=== PATIENT | female | born 1935 ===

== ENCOUNTER 2016-11-06 20:02 | Inpatient (IN) | payer MEDICARE, MEDICAID ==
[2016-11-06 20:03] VITALS: BMI 24.0
--- NOTE | 2016-11-06 20:08 | C.PDOC ---
History Of Present Illness Patient with a history of Parkinson's Disease presents to the ED with complaints of chest pain and blurry vision beginning earlier today. Patient states she called her son earlier in the day with symptoms and while walking to the ED began to develop left sided chest pain. She denies fever, chills, nausea , or vomiting. Time Seen by Provider: 11/06/16 20:08 Chief Complaint (Nursing): Chest Pain History Per: Patient History/Exam Limitations: no limitations Onset/Duration Of Symptoms: Hrs Current Symptoms Are (Timing): Still Present Severity: Moderate Pain Scale Rating Of: 4 Quality: "Pain" Associated Symptoms: denies: Nausea, Dyspnea, Diaphoresis, Syncope Modifying Factors: None Exacerbating Factors: Other (Walking ) Alleviating Factors: None Recent travel outside of the [place]: No Additional History Per: Family (son ) Past Medical History Reviewed: Historical Data, Nursing Documentation, Vital Signs Vital Signs: Last Vital Signs Temp 97.2 F L 11/06/16 20:23 Pulse 98 H 11/06/16 20:23 Resp 20 11/06/16 20:23 BP 171/87 H 11/06/16 20:23 Pulse Ox 96 11/06/16 20:23 - Medical History PMH: HTN, Osteoporosis, Parkinson's Disease - [facility] Procedures EXCISION OF STOMACH, ENDO, DIAGN (04/19/16) TRANSFUSE NONAUT RED BLOOD CELLS IN PERIPH VEIN, PERC (04/19/16) Family History: States: No Known Family Hx - Social History Hx Tobacco Use: No Hx Alcohol Use: No Hx Substance Use: No - Immunization History Hx Tetanus Toxoid Vaccination: No Hx Influenza Vaccination: No Hx Pneumococcal Vaccination: Yes Review Of Systems Constitutional: Negative for: Fever, Chills Eyes: Positive for: Other (blurry vision ) Cardiovascular: Positive for: Chest Pain. Negative for: Palpitations Respiratory: Negative for: Cough, Shortness of Breath Gastrointestinal: Negative for: Nausea, Vomiting, Abdominal Pain Neurological: Negative for: Weakness, Numbness Physical Exam - Physical Exam Appears: Non-toxic, No Acute Distress Skin: Warm, Dry Head: Atraumatic Eye(s): bilateral: Normal Inspection, PERRL, EOMI Oral Mucosa: Moist Neck: Supple Chest: Symmetrical Cardiovascular: Rhythm Regular Respiratory: No Rales, No Rhonchi, No Wheezing Gastrointestinal/Abdominal: Bowel Sounds (good bowel sounds ), Soft, No Tenderness, No Distention, No Guarding, No Rebound Extremity: No Tenderness, Pedal Edema (bilateral trace pedal edema ) Neurological/Psych: Oriented x3, Other (Bilateral tremors. Cogwheel rigidity.) ED Course And Treatment - Laboratory Results Result Diagrams: 11/06/16 20:53 11/06/16 20:53 ECG: Interpreted By Me, Viewed By Me ECG Rhythm: Sinus Rhythm (104), ST/T Changes (lvh with repolarization abn) O2 Sat by Pulse Oximetry: 96 Pulse Ox Interpretation: Normal - Radiology CXR: Interpreted by Me, Viewed By Me - CT Scan/US Head CT W/O contrast Other Rad Studies (CT/US): Read By Radiologist, Radiology Report Reviewed Progress Note: UA, Head CT, EKG, CXR, and labs were ordered. Patient was given Ecotrin. Disposition Discussed With DrJulia: Charles Sanchez Comment: accepted the pt on his service and took over the care at 11:25PM Doctor Will See Patient In The: ED Counseled Patient/Family Regarding: Studies Performed, Diagnosis - Disposition Disposition: HOSPITALIZED Disposition Time: 20:08 Condition: FAIR Forms: [employer] (Yi) - Clinical Impression Clinical Impression: Chest pain, Renal insufficiency, Parkinson disease - Scribe Statement The provider has reviewed the documentation as recorded by the Scribe Martha Daniels All medical record entries made by the Scribe were at my direction and personally dictated by me. I have reviewed the chart and agree that the record accurately reflects my personal performance of the history, physical exam, medical decision making, and the department course for this patient. I have also personally directed, reviewed, and agree with the discharge instructions and disposition.
[2016-11-06 20:09] VITALS: O2SAT 96
[2016-11-06] MEDS ORDERED: Aspirin 325 mg EC Tablets PO STA (20:31)
[2016-11-06 21:03] LABS: BASO # 0.1 K/uL (0.0-0.2); BASO % 0.8 % (0.0-2.0); EOS # 0.1 K/uL (0.0-0.7); EOS % 1.5 % (0.0-4.0); HEMATOCRIT 32.4 % (34.0-47.0); LYMPH # 1.1 K/uL (1.0-4.3); LYMPH % 14.7 % (20.0-40.0); MEAN CELL VOLUME 84.5 fL (81.0-99.0); MEAN CORPUSCULAR HEMOGLOBIN 27.9 pg (27.0-31.0); MEAN PLATELET VOLUME 8.8 fL (7.2-11.7); MONO # 0.6 K/uL (0.0-0.8); MONO % 8.8 % (0.0-10.0); RED CELL DISTRIBUTION WIDTH 15.8 % (11.5-14.5); WHITE BLOOD COUNT 7.3 K/uL (4.8-10.8)
[2016-11-06 21:18] LABS: RBC URINE 2 /hpf (0-3); TRANSITIONAL EPITHIAL 1 /hpf (0-3); URINE BACTERIA FEW (<OCC); URINE BILIRUBIN NEGATIVE (NEGATIVE); URINE BLOOD NEGATIVE (NEGATIVE); URINE COLOR Yellow (YELLOW); URINE GLUCOSE (UA) NORMAL (Normal); URINE KETONE NEGATIVE (NEGATIVE); URINE LEUKOCYTE ESTERASE 2+ Leu/uL (Negative); URINE PROTEIN 1+ mg/dL (NEGATIVE); URINE UROBILINOGEN NORMAL mg/dL (0.2-1.0); WBC URINE 28 /hpf (0-5)
[2016-11-06 21:28] LABS: POTASSIUM 3.9 mmol/L (3.6-5.2)
[2016-11-06] MEDS ORDERED: Piperacillin/Tazobact 3.375 gm 100 ML IVPB STA (21:28)
[2016-11-06 21:30] LABS: ALB/GLOB RATIO 1.6 (1.0-2.1); BILIRUBIN,TOTAL 0.5 mg/dL (0.2-1.3); TOTAL PROTEIN 7.1 g/dL (6.3-8.3)
[2016-11-06 21:31] LABS: CALCIUM 9.2 mg/dl (8.6-10.4)
[2016-11-06 21:44] LABS: TROPONIN I 0.013 ng/mL (0.00-0.120)
[2016-11-06] MEDS ORDERED: Piperacillin/Tazobact 3.375 gm 100 ML IVPB ONE (23:18)
--- NOTE | 2016-11-06 23:39 | CT ---
EXAM: CT Head Without Intravenous Contrast EXAM DATE/TIME: 11/06/2016 8:40 PM CLINICAL HISTORY: 81 years old, female; Condition or disease; Headache; Additional info: Occaionally decreased vision, ? headache, parkinson TECHNIQUE: Axial computed tomography images of the head/brain without intravenous contrast. All CT scans at this facility use one or more dose reduction techniques, viz.: automated exposure control; ma/kV adjustment per patient size (including targeted exams where dose is matched to indication; i.e. head); or iterative reconstruction technique. COMPARISON: There are no prior studies for comparison. FINDINGS: Brain: There is dilatation of sulci gyri and ventricles. There is no midline shift. There is decreased attenuation in periventricular white matter. There are basal ganglia calcifications. There are no focal masses. There are no focal hemorrhages. Gerard-white differentiation is visualized. Vascular structures at the skull base are ectatic with calcification. Left cerebellar calcification is felt to be vascular and is unchanged. Ventricles: See above. Bones: Cranial vault is intact. Soft tissues: unremarkable Sinuses: There is no acute sinusitis. Ears and mastoids: Middle ears and mastoids are unremarkable. Orbits: Orbital contents are unremarkable. IMPRESSION: Atrophy and small vessel disease, no acute intracranial abnormality
[2016-11-07 00:43] VITALS: BP 191/92; PULSE 100; RESP 18; TEMP 98.5
--- NOTE | 2016-11-07 10:30 | RAD ---
PROCEDURE: CHEST RADIOGRAPH, 1 VIEW HISTORY: chest pain COMPARISON: Portable chest 04/19/2016. FINDINGS: LUNGS: Clear. PLEURA: The left costophrenic sulcus is obscured likely by small pleural effusion. No right pleural effusion. No pneumothorax bilaterally. CARDIOVASCULAR: Cardiac silhouette remains prominent appearing but no pulmonary vascular derangement is appreciated. OSSEOUS STRUCTURES: No significant abnormalities. VISUALIZED UPPER ABDOMEN: Normal. OTHER FINDINGS: None. IMPRESSION: Interval minimal left pleural effusion. None is seen the right. No infiltrate bilaterally.
--- NOTE | 2016-11-08 18:07 | CARD ---
APPROVED REPORT EKG Measurement Heart [id number] <Conclusion> Sinus tachycardia Left axis deviation Left ventricular hypertrophy with repolarization abnormality Abnormal ECG
== END 2016-11-07 00:46 | disposition left against medical advice (07) | DRG 313 ==
LOC: C.ER 20:02 → C.6T 23:35
PROVIDERS: ADMIT Internal Medicine; ATTEND Internal Medicine
DX: R07.9 Chest pain, unspecified (principal); G20 Parkinson's disease; N28.9 Disorder of kidney and ureter, unspecified; I10 Essential (primary) hypertension; M81.0 Age-related osteoporosis without current pathological fracture; H53.8 Other visual disturbances

== ENCOUNTER 2016-11-21 06:57 | Day surgery (SDC) | payer MEDICARE, MEDICAID ==
[2016-11-21 07:28] VITALS: BMI 26.1
[2016-11-21] MEDS ORDERED: Lactated Ringer's 1,000 ML IV ONE (09:20)
[2016-11-21] MEDS ORDERED: Propofol 10 mg/ml Inj (20 ML) ONE (09:32)
[2016-11-21] MEDS ORDERED: Lidocaine Hydrochloride 5 ML INJ ONE (09:32)
[2016-11-21 09:55] VITALS: TEMP 97.8
[2016-11-21 10:21] VITALS: O2SAT 97
[2016-11-21 11:08] VITALS: BP 155/77; PULSE 77; RESP 20
== END 2016-11-21 11:00 | disposition home or self-care (01) ==
LOC: C.ENDO 06:57
PROVIDERS: ATTEND Internal Medicine Gastroenterology
DX: K25.9 Gastric ulcer, unspecified as acute or chronic, without hemorrhage or perforation (principal)
CPT/HCPCS: 43239; 82948; 88305; J2704; J7120

== ENCOUNTER 2016-12-04 23:32 | Inpatient (IN) | payer MEDICARE, MEDICAID ==
[2016-12-04 23:32] VITALS: BMI 26.1
[2016-12-04] MEDS ORDERED: Sodium Chloride 0.9% 500 ML IV ONE (23:57)
[2016-12-05 00:17] LABS: BASO # 0.1 K/uL (0.0-0.2); BASO % 1.1 % (0.0-2.0); EOS # 0.2 K/uL (0.0-0.7); EOS % 1.6 % (0.0-4.0); LYMPH # 2.1 K/uL (1.0-4.3); LYMPH % 21.2 % (20.0-40.0); MEAN CELL VOLUME 87.1 fL (81.0-99.0); MEAN CORPUSCULAR HEMOGLOBIN 28.8 pg (27.0-31.0); MEAN CORPUSCULAR HGB CONC 33.1 g/dL (33.0-37.0); MEAN PLATELET VOLUME 9.4 fL (7.2-11.7); MONO # 0.9 K/uL (0.0-0.8); MONO % 8.8 % (0.0-10.0)
--- NOTE | 2016-12-05 00:27 | C.PDOC ---
History Of Present Illness 81 year old female with a history of HTN and hyperthyroid presents to the ED with complaints of acute onset of intermittent left sided chest pain with associated shortness of breath beginning a few hours prior to arrival at 7pm. Patient did not tell anyone about the pain until her son was home from work at 11pm. She has no known cardiac history. On arrival, was a 5/10 but has since resolved. She denies cough, production of sputum, fever, radiation of pain, nausea, or vomiting. Chief Complaint (Nursing): Chest Pain History Per: Patient (vague historian ), Family (son ) History/Exam Limitations: no limitations Onset/Duration Of Symptoms: Hrs, Intermittent Episodes, Sudden Onset Current Symptoms Are (Timing): Better Pain Scale Rating Of: 5 Quality: "Pain" Modifying Factors: None Exacerbating Factors: None Alleviating Factors: None Recent travel outside of the [place]: No Past Medical History Reviewed: Historical Data, Nursing Documentation, Vital Signs Vital Signs: Last Vital Signs Temp 98.4 F 12/04/16 23:42 Pulse 83 12/05/16 00:29 Resp 16 12/05/16 00:29 BP 136/83 12/05/16 00:29 Pulse Ox 95 12/05/16 01:14 - Medical History PMH: Anemia, Gastrointestinal Ulcer, HTN, Osteoporosis, Parkinson's Disease, Chronic Kidney Disease Surgical History: No Surg Hx, Endoscopy - [facility] Procedures EXCISION OF STOMACH, ENDO, DIAGN (04/19/16) TRANSFUSE NONAUT RED BLOOD CELLS IN PERIPH VEIN, PERC (04/19/16) Family History: States: Unknown Family Hx - Social History Hx Tobacco Use: No Hx Alcohol Use: No Hx Substance Use: No - Immunization History Hx Tetanus Toxoid Vaccination: No Hx Influenza Vaccination: No Hx Pneumococcal Vaccination: Yes Review Of Systems Constitutional: Negative for: Fever, Chills Cardiovascular: Positive for: Chest Pain. Negative for: Palpitations Respiratory: Positive for: Shortness of Breath. Negative for: Cough Gastrointestinal: Negative for: Nausea, Vomiting, Abdominal Pain, Diarrhea Neurological: Negative for: Weakness, Numbness Physical Exam - Physical Exam Appears: In Acute Distress (mild distress ), Other (elderly female with parkinsonian tremor to RUE) Skin: Warm, Dry Head: Atraumatic, Normacephalic Eye(s): bilateral: Normal Inspection, PERRL, EOMI Ear(s): Bilateral: Normal Oral Mucosa: Moist Throat: Normal, No Erythema, No Exudate, Other (Airway patient ) Neck: Supple Chest: Symmetrical, No Deformity Cardiovascular: Other (resting heart is tachycardic at 110 bpm, S1 and S2 within normal limits. No thrills ) Respiratory: Other (Diminished breath sounds bilaterally, diminished lung excusions on auscultation. ) Gastrointestinal/Abdominal: Soft, No Tenderness, Distention (with tympany with percussion ), No Guarding, No Rebound Back: Other (Marked kyphoscoliosis) Extremity: No Pedal Edema, No Swelling, Other (No clubbing or cyanosis of extremities ) Neurological/Psych: Oriented x3, Normal Cranial Nerves (cranial nerves 2-12 intact ), Other (patient following commands, no motor focal deficits. ) ED Course And Treatment - Laboratory Results Result Diagrams: 12/04/16 23:50 12/04/16 23:50 ECG: Interpreted By Me, Viewed By Me ECG Rhythm: Sinus Tachycardia Interpretation Of ECG: EKG shows sinus tach to 103,LVH with strain,no acute ST changes.No old EKGs for comparison Rate From EC O2 Sat by Pulse Oximetry: 95 (nasal cannula ) - Radiology CXR: Interpreted by Me, Viewed By Me CXR Interpretation: Yes: Cardiomegaly, Other (lung magallon appear grossly normal) Progress Note: EKG, CXR, and labs ordered. Patient given nitroglycerin and IV fluids. Pt placed on nasal cannula. Medical Decision Making Medical Decision Making: Impression: Acute coronary syndrome vs hypertensive urgency. Full workup for ACS was ordered. Pt will likely require admission. Pt CP resolved and BP came down after single SLNTG.Will admit to r/o ACS Disposition - Disposition Referrals: Tianna Oliveira MD [Primary Care Provider] - Disposition Time: 01:12 Condition: GUARDED Forms: [employer] (Pashto) - Clinical Impression Clinical Impression: Acute coronary insufficiency syndrome - Scribe Statement The provider has reviewed the documentation as recorded by the Scribe Martha Daniels All medical record entries made by the Scribe were at my direction and personally dictated by me. I have reviewed the chart and agree that the record accurately reflects my personal performance of the history, physical exam, medical decision making, and the department course for this patient. I have also personally directed, reviewed, and agree with the discharge instructions and disposition. Decision To Admit - Pt Status Changed To: Hospital Disposition Of: Inpatient - Admit Certification Admit to Inpatient:: After my assessment, the patient will require hospitalization for at least two midnights. This is because of the severity of symptoms shown, intensity of services needed, and/or the medical risk in this patient being treated as an outpatient. - InPatient: Physician Admission Certification: I certify that this patient requires 2 or more midnights of care for the following reason:: acute coronary syndrome - . Bed Request Type: Telemetry Admitting Physician: Ronaldo Boles Patient Diagnosis: Acute coronary insufficiency syndrome
[2016-12-05 00:33] LABS: ALB/GLOB RATIO 1.1 (1.0-2.1); BILIRUBIN,TOTAL 0.6 mg/dL (0.2-1.3); CALCIUM 9.6 mg/dl (8.6-10.4); TOTAL PROTEIN 8.3 g/dL (6.3-8.3)
--- NOTE | 2016-12-05 00:42 | C.PDOC ---
Chief Complaint (Nursing): Chest Pain Past Medical History Vital Signs: Last Vital Signs Temp 98.4 F 12/04/16 23:42 Pulse 116 H 12/04/16 23:56 Resp 24 12/04/16 23:56 BP 168/98 H 12/04/16 23:56 Pulse Ox 96 12/04/16 23:56 - Medical History PMH: Anemia, Gastrointestinal Ulcer, HTN, Osteoporosis, Parkinson's Disease, Chronic Kidney Disease Denies: Fractures Surgical History: Endoscopy - [facility] Procedures EXCISION OF STOMACH, ENDO, DIAGN (04/19/16) TRANSFUSE NONAUT RED BLOOD CELLS IN PERIPH VEIN, PERC (04/19/16) Family History: States: Unknown Family Hx - Social History Hx Tobacco Use: No Hx Alcohol Use: No Hx Substance Use: No - Immunization History Hx Tetanus Toxoid Vaccination: No Hx Influenza Vaccination: No Hx Pneumococcal Vaccination: Yes ED Course And Treatment O2 Sat by Pulse Oximetry: 96 Disposition - Disposition Referrals: Tianna Oliveira MD [Primary Care Provider] -
[2016-12-05 00:45] LABS: TROPONIN I 0.03 ng/mL (0.00-0.120)
[2016-12-05 00:49] LABS: POTASSIUM 5.4 mmol/L (3.6-5.2)
[2016-12-05] MEDS ORDERED: Pantoprazole 40 mg EC Tab PO STA (01:24)
[2016-12-05] MEDS ORDERED: Pantoprazole 40 mg EC Tab PO ONE (01:28)
[2016-12-05] MEDS ORDERED: Labetalol 25mg/5ml Syringe IVP STA (04:44)
[2016-12-05] MEDS: (Novolog) Insulin Aspart, Recombinant 100 u/ml 10 ml vial SC SCH ×4 (07:40→22:06)
--- NOTE | 2016-12-05 08:21 | RAD ---
PROCEDURE: CHEST RADIOGRAPH, 1 VIEW HISTORY: chest pain COMPARISON: Portal chest 11/06/2016. FINDINGS: LUNGS: Borderline patchy airspace disease is questioned at the medial right base as well as lateral left base in the interval. PLEURA: Trace left pleural effusion remains in question with none on the right. No pneumothorax bilaterally. CARDIOVASCULAR: Prominent cardiac silhouette again noted. No pulmonary vascular derangement. OSSEOUS STRUCTURES: No significant abnormalities. VISUALIZED UPPER ABDOMEN: Normal. OTHER FINDINGS: None. IMPRESSION: Limited medial right basilar and left lateral basilar airspace disease is questioned in the interval with trace of pleural effusion again questioned. Cardiac silhouette appears stable.
[2016-12-05] MEDS: Pantoprazole 40 mg EC Tab PO SCH (09:22)
[2016-12-05] MEDS ORDERED: VALSARTAN 80 MG PO SCH (10:00)
[2016-12-05] MEDS ORDERED: Enoxaparin 40 mg Syringe SC SCH (10:00)
[2016-12-05] MEDS ORDERED: PRAMIPEXOLE DI HCL 0.5 MG PO SCH (10:00)
--- NOTE | 2016-12-05 18:34 | CT ---
PROCEDURE: CT HEAD WITHOUT CONTRAST. HISTORY: s/p fall COMPARISON: Comparison is made to the previous study dated 11/06/2016 TECHNIQUE: Axial computed tomography images were obtained through the head/brain without intravenous contrast. Radiation dose: Total exam DLP = 751.65 mGy-cm. This CT exam was performed using one or more of the following dose reduction techniques: Automated exposure control, adjustment of the mA and/or kV according to patient size, and/or use of iterative reconstruction technique. FINDINGS: HEMORRHAGE: No intracranial hemorrhage. BRAIN: No mass effect or edema. Again seen is [id number] atrophy and moderate chronic microvascular white matter ischemic disease. VENTRICLES: Unremarkable. No hydrocephalus. CALVARIUM: Unremarkable. PARANASAL SINUSES: Unremarkable as visualized. No significant inflammatory changes. MASTOID AIR CELLS: Unremarkable as visualized. No inflammatory changes. OTHER FINDINGS: Diffuse atherosclerotic calcifications seen in the carotid arteries at the skull base. IMPRESSION: No evidence of acute intracranial hemorrhage intracranial collection mass effect or midline shift.
--- NOTE | 2016-12-05 22:19 | CON ---
REASON FOR CONSULTATION: Fall and chest discomfort. HISTORY OF PRESENT ILLNESS: The patient is an 81-year-old female who has Parkinsonism for the past 10 years according to her, but she is able to function reasonably at home. She lives with her son. The patient presented because of a fall. The patient denies experiencing any dizziness or palpitation. The patient fell on her face and bruised her forehead. The patient did have falls in the past, but denies any fractures or significant injury in the past. The patient was brought by her son into the emergency room. Chest pain was reported to the emergency room team which was described to be intermittent, left-sided, associated with shortness of breath. The patient is unaware of any prior cardiac history in the past. SOCIAL HISTORY: Nonsmoker, nondrinker. She lives with her son. MEDICATIONS: Artane 2 mg p.o. t.i.d., Cozaar 100 mg daily, Crestor 10 mg once a day, Feosol 1 tablet twice a day, Glucophage 500 mg daily, hydrochlorothiazide 25 mg daily, Lovenox 40 mg subcutaneous once a day, Mirapex 0.5 mg t.i.d., Sinemet 1 tablet t.i.d. REVIEW OF SYSTEMS: No nausea or vomiting. No fever or chills. No diarrhea. No chest pain at this time. No palpitations. PHYSICAL EXAMINATION GENERAL: The patient is an elderly female, who does not appear to be in any distress. VITAL SIGNS: Blood pressure 146/91, heart rate 90, temperature 98. 1 and respirations 20. HEENT: Frontal bruising as well as nasal bruising. NECK: No JVD. CHEST: Clear. HEART: S1 and S2 regular. ABDOMEN: Soft. EXTREMITIES: Trace leg edema. LABORATORY DATA: SMA-7; sodium 135, potassium 5.4, chloride 99, CO2 of 22, glucose 133, BUN 34, creatinine 1.6. Three sets of troponin are elevated. Hemoglobin, hematocrit, white count and platelet count are within normal limits. EKG: Three EKGs are noted on the [employer] database; however, they are not accessible at this time and I would review the paper for math once it is available. Chest x-ray limited right basal and left lateral basal airspace disease is questioned and the interval with trace of pleural effusion, again questioned. ASSESSMENT: 1. Status post fall, unlikely syncopal episode and most likely related to the patient's parkinsonism. 2. Atypical chest pain. If chest pain recurs, then I will consider rib series. 3. Parkinsonism. 4. Hypertension. 5. Diabetes mellitus. 6. Mild hyperkalemia. RECOMMENDATIONS: Continue Cozaar 100 mg once a day, Crestor 10 mg once a day, hydrochlorothiazide 25 mg once a day, Lovenox 40 mg subcutaneous once a day, Sinemet 1 tablet t.i.d. I will follow head CT scan that was performed today as well as echocardiogram study and the 3 EKGs that were completed so far. Consider in the mean time carotid Doppler. Wm Aldridge MD
--- NOTE | 2016-12-05 22:58 | CP.PCM.HP ---
History of Present Illness - History of Present Illness History of Present Illness: CC: fall x 1 day Chest pain x 1 day HPI: 81 year old female with a history of HTN , parkinson dieases, hyperlipdemia and hyperthyroid presents to the ED with complaints of acute onset of intermittent left sided chest pain with associated shortness of breath beginning a few hours prior to arrival at 7pm. Patient did not tell anyone about the pain until her son was home from work at 11pm. She has no known cardiac history. On arrival, was a 5/10 but has since resolved. Pt is a poor historian she said she hit her head and chest and later on develop chest pain, but she cannot give exact secnario and information that what happened and how mario she fell. She denies cough, production of sputum, fever, radiation of pain , nausea, or vomiting. She c/o some headache and chornic knee pain. There is no h/o abdominal pain, dyspesia, hematuria, pyuria, nausea, vomitting, polyphagia, polydispsia, no sneezing, itchy eyes, itchy nose Present on Admission - Present on Admission Any Indicators Present on Admission: Yes Review of Systems - Review of Systems Systems not reviewed;Unavailable: Acuity of Condition, Uncooperative - Constitutional Constitutional: Fatigue, Lethargy, Malaise - EENT Eyes: Decreased Night Vision Ears: absent: As Per HPI, Decreased Hearing, Ear Discharge, Ear Pain, Tinnitus, Abnormal Hearing, Disequilibrium, Dizziness, Other Nose/Mouth/Throat: absent: As Per HPI, Epistaxis, Nasal Congestion, Nasal Discharge, Nasal Obstruction, Nasal Trauma, Nose Pain, Post Nasal Drip, Sinus Pain, Sinus Pressure, Bleeding Gums, Change in Voice, Dental Pain, Dry Mouth, Dysphagia, Halitosis, Hoarsness, Lip Swelling, Mouth Lesions, Mouth Pain, Odynophagia, Sore Throat, Throat Swelling, Tongue Swelling, Facial Pain, Neck Pain, Neck Mass, Other - Cardiovascular Cardiovascular: Chest Pain, Chest Pain at Rest. absent: As Per HPI, Acrocyanosis, Chest Pain with Activity, Claudication, Diaphoresis, Dyspnea, Dyspnea on Exertion, Edema, Irregular Heart Rhythm, Pain Radiating to Arm/Neck/ Jaw, Leg Edema, Leg Ulcers, Lightheadedness, Orthopnea, Palpitations, Paroxysmal Nocturnal Dyspnea, Pedal Edema, Radiating Pain, Rapid Heart Rate, Slow Heart Rate, Syncope, Other - Respiratory Respiratory: absent: As Per HPI, Cough, Dyspnea, Hemoptysis, Dyspnea on Exertion , Wheezing, Snoring, Stridor, Pain on Inspiration, Chest Congestion, Excessive Mucous Production, Change in Mucous Color, Pain with Coughing, Other - Gastrointestinal Gastrointestinal: absent: As Per HPI, Abdominal Pain, Belching, Bloating, Change in Bowel Habits, Change in Stool Character, Coffee Ground Emesis, Constipation, Cramping, Diarrhea, Dyspepsia, Dysphagia, Early Satiety, Excessive Flatus, Fecal Incontinence, Heartburn, Hematemesis, Hematochezia, Loose Stools, Melena, Nausea, Odynophagia, Temesmus, Vomiting, Other - Genitourinary Genitourinary: absent: As Per HPI, Change in Urinary Stream, Difficulty Urinating, Dysuria, Flank Pain, Hematuria, Pyuria, Nocturia, Urinary Incontinence, Urinary Frequency, Urinary Hesitance, Urinary Urgency, Voiding Freq/Small Amts, Freq UTI, Hx Renal/Bladder Calculi, Hx /Renal Surgery, Bladder Distension, Other - Musculoskeletal Musculoskeletal: Limited Range of Motion, Muscle Weakness, Myalgias, Stiffness, Tingling - Integumentary Integumentary: absent: As Per HPI, Acne, Alopecia, Bleeding Lesions, Change in Hair, Change in Nails, Change in Pigmentation, Changing Lesions, Dry Skin, Erythema, Furuncle, Hirsutism, Lesions, New Lesions, Non-Healing Lesions, Photosensitivity, Pruritus, Rash, Skin Pain, Skin Ulcer, Sores, Striae, Swelling , Unusual Bruising, Wounds, Jaundice, Other - Neurological Neurological: Headaches - Psychiatric Psychiatric: absent: As Per HPI, Abnormal Sleep Pattern, Anhedonia, Anxiety, Auditory Hallucinations, Behavioral Changes, Change in Appetite, Change in Libido, Confusion, Depression, Difficulty Concentrating, Hallucinations, Homicidal Ideation, Hopelessness, Irritability, Memory Loss, Mood Swings, Panic Attacks, Paranoia, Suicidal Ideation, Visual Hallucinations, Tactile Hallucinations, Other - Endocrine Endocrine: absent: As Per HPI, Change in Body Appearance, Change in Libido, Cold Intolorance, Deepening of Voice, Excessive Sweating, Fatigue, Flushing, Heat Intolorance, Increase in Ring/Shoe/Hat Size, Palpitations, Polydipsia, Polyphagia, Polyuria, Other Past Patient History - Infectious Disease Hx of Infectious Diseases: None - Past Medical History & Family History Past Medical History?: Yes - Past Social History Smoking Status: Never Smoked - CARDIAC Hx Cardiac Disorders: Yes Hx Hypertension: Yes - PULMONARY Hx Respiratory Disorders: No - NEUROLOGICAL Hx Neurological Disorder: Yes Hx Parkinson's Disease: Yes - HEENT Hx HEENT Problems: Yes Other/Comment: DIABETIC RETINOPATHY - RENAL Hx Chronic Kidney Disease: Yes - ENDOCRINE/METABOLIC Hx Endocrine Disorders: Yes Hx Diabetes Mellitus Type 2: Yes - HEMATOLOGICAL/ONCOLOGICAL Hx Blood Disorders: Yes Hx Anemia: Yes - INTEGUMENTARY Hx Dermatological Problems: No - MUSCULOSKELETAL/RHEUMATOLOGICAL Hx Musculoskeletal Disorders: Yes Hx Falls: Yes Hx Osteoporosis: Yes Other/Comment: restless leg syndrome - GASTROINTESTINAL Hx Gastrointestinal Disorders: Yes Hx Ulcer: Yes - GENITOURINARY/GYNECOLOGICAL Hx Genitourinary Disorders: Yes Hx Urinary Tract Infection: Yes Other/Comment: has appointment to see biomedical equipment specialist'for pain to left side of back kidney' - PSYCHIATRIC Hx Psychophysiologic Disorder: No Hx Substance Use: No - SURGICAL HISTORY Hx Surgeries: Yes Hx Dilation and Curettage: Yes (1988) Hx Thyroidectomy: Yes Other/Comment: 11/21/16 sp endoscopy 'bleeding ulcer' - ANESTHESIA Hx Anesthesia: Yes Hx Anesthesia Reactions: No Meds Allergies/Adverse Reactions: Allergies Allergy/AdvReac Type Severity Reaction Status Date / Time No Known Allergies Allergy Verified 12/04/16 23:39 Physical Exam - Constitutional Appears: Well, No Acute Distress Additional comments: elderly female in NAD prefers to keep her eyes close she has tremor in her hands - Eye Exam Eye Exam: EOMI, Normal appearance, PERRL Additional comments: i dont see any obvious bruises on head or forehead - ENT Exam Additional comments: oral cavity adentelous - Neck Exam Neck exam: Positive for: Normal Inspection - Respiratory Exam Respiratory Exam: Clear to Auscultation Bilateral, NORMAL BREATHING PATTERN - Cardiovascular Exam Cardiovascular Exam: REGULAR RHYTHM, Systolic Murmur Additional comments: 2/6 ESM at apex - GI/Abdominal Exam GI & Abdominal Exam: Normal Bowel Sounds, Soft. absent: Tenderness - Back Exam Back exam: NORMAL INSPECTION - Neurological Exam Neurological exam: Alert, CN II-XII Intact, Normal Gait, Oriented x3, Reflexes Normal Additional comments: cog wheel rigidity' resting tremor bradykinesia - Psychiatric Exam Additional comments: Pt is not cooperative with Physical exam - Skin Skin Exam: Dry, Intact, Normal Color, Warm Additional comments: senile turgor Results - Vital Signs Recent Vital Signs: Last Vital Signs Temp 98.1 F 12/05/16 15:05 Pulse 90 12/05/16 15:05 Resp 20 12/05/16 15:05 BP 146/91 H 12/05/16 15:05 Pulse Ox 96 12/05/16 15:05 - Labs Result Diagrams: 12/04/16 23:50 12/04/16 23:50 Labs: Laboratory Results - last 24 hr 12/04/16 12/04/16 12/05/16 23:50 23:50 05:57 WBC 10.0 RBC 3.90 Hgb 11.2 Hct 34.0 MCV 87.1 D MCH 28.8 MCHC 33.1 RDW 15.0 H Plt Count 242 MPV 9.4 Neut % (Auto) 67.3 Lymph % (Auto) 21.2 [place] % (Auto) 8.8 Eos % (Auto) 1.6 Baso % (Auto) 1.1 Neut # 6.7 Lymph # 2.1 [place] # 0.9 H Eos # 0.2 Baso # 0.1 Sodium 135 Potassium 5.4 H Chloride 99 Carbon Dioxide 22 Anion Gap 19 BUN 34 H Creatinine 1.6 H Est GFR ( Amer) 37 Est GFR (Non-Af Amer) 31 POC Glucose (mg/dL) Random Glucose 133 H Calcium 9.6 Total Bilirubin 0.6 AST 29 ALT 19 Alkaline Phosphatase 64 Total Creatine Kinase 67 CK-MB (Mass) 2.52 Troponin I 0.0300 Troponin I, Quant 0.0490 NT-Pro-B Natriuret Pep 404 Total Protein 8.3 Albumin 4.3 Globulin 4.0 H Albumin/Globulin Ratio 1.1 12/05/16 12/05/16 12/05/16 06:27 11:38 12:00 WBC RBC Hgb Hct MCV MCH MCHC RDW Plt Count MPV Neut % (Auto) Lymph % (Auto) [place] % (Auto) Eos % (Auto) Baso % (Auto) Neut # Lymph # [place] # Eos # Baso # Sodium Potassium Chloride Carbon Dioxide Anion Gap BUN Creatinine Est GFR ( Amer) Est GFR (Non-Af Amer) POC Glucose (mg/dL) 133 H 131 H Random Glucose Calcium Total Bilirubin AST ALT Alkaline Phosphatase Total Creatine Kinase 139 H CK-MB (Mass) 2.88 Troponin I Troponin I, Quant 0.0360 NT-Pro-B Natriuret Pep Total Protein Albumin Globulin Albumin/Globulin Ratio 12/05/16 12/05/16 17:14 21:14 WBC RBC Hgb Hct MCV MCH MCHC RDW Plt Count MPV Neut % (Auto) Lymph % (Auto) [place] % (Auto) Eos % (Auto) Baso % (Auto) Neut # Lymph # [place] # Eos # Baso # Sodium Potassium Chloride Carbon Dioxide Anion Gap BUN Creatinine Est GFR ( Amer) Est GFR (Non-Af Amer) POC Glucose (mg/dL) 167 H 146 H Random Glucose Calcium Total Bilirubin AST ALT Alkaline Phosphatase Total Creatine Kinase CK-MB (Mass) Troponin I Troponin I, Quant NT-Pro-B Natriuret Pep Total Protein Albumin Globulin Albumin/Globulin Ratio Assessment & Plan (1) Fall Assessment and Plan: could be mechanical fall or due to vasovagal episode Status: Acute (2) Chest pain Assessment and Plan: Rule out Coronary Ischemia, CAD Status: Acute (3) HTN (hypertension) Status: Acute (4) Osteoarthritis (arthritis due to wear and tear of joints) Status: Acute (5) Parkinson disease Status: Acute
--- NOTE | 2016-12-06 00:14 | CARD ---
APPROVED REPORT EXAM: Two-dimensional and M-mode echocardiogram with Doppler and color Doppler. Other Information Quality : GoodRhythm : INDICATION Abnormal EKG/Arrhythmia Chest Pain Syncope 2D DIMENSIONS IVSd1.4 (0.7-1.1cm)LVDd4.1 (3.9-5.9cm) PWd1.4 (0.7-1.1cm) M-Mode DIMENSIONS Left Atrium (MM)3.94 (2.5-4.0cm)Aortic Root3.05 (2.2-3.7cm) Aortic Cusp Exc.2.31 (1.5-2.0cm) Mitral Valve MV E Yjxsvnxg47.5cm/sMV A Dswnsnfq395.2cm/sE/A ratio0.5 TDI E/Lateral E'0.0E/Medial E'0.0 Tricuspid Valve TR Peak Engucbwx088gm/sTR Peak [id number] LEFT VENTRICLE The left ventricle is normal size. There is mild to moderate concentric left ventricular hypertrophy. Left ventricle systolic function is normal. The Ejection Fraction is 65-70%. There is normal LV segmental wall motion. Tissue Doppler imaging reveals abnormal left ventricular diastolic dysfunction. RIGHT VENTRICLE The right ventricle is normal size. There is normal right ventricular wall thickness. The right ventricular systolic function is normal. ATRIA The left atrium size is normal. The right atrium size is normal. The interatrial septum is intact with no evidence for an atrial septal defect. AORTIC VALVE The aortic valve is normal in structure. No aortic regurgitation is present. There is no aortic valvular stenosis. There is no aortic valvular vegetation. MITRAL VALVE The mitral valve is normal in structure. There is no evidence of mitral valve prolapse. There is no mitral valve stenosis. There is no mitral valve regurgitation noted. TRICUSPID VALVE The tricuspid valve is normal in structure. There is trace to mild tricuspid regurgitation. Right ventricular systolic pressure is estimated at less than 30 mmHg. There is no pulmonary hypertension. PULMONIC VALVE The pulmonic valve is not well visualized. There is trace to mild pulmonic valvular regurgitation. GREAT VESSELS The aortic root is normal in size. PERICARDIAL EFFUSION There is no significant pericardial effusion. <Conclusion> Left ventricle systolic function is normal. The Ejection Fraction is 65-70%. Hypertensive heart disease. Diastolic dysfunction. No aortic regurgitation is present. There is no mitral valve regurgitation noted. There is trace to mild tricuspid regurgitation. There is no pulmonary hypertension. There is trace to mild pulmonic valvular regurgitation.
--- NOTE | 2016-12-06 06:55 | CP.PCM.PN ---
Subjective - Date & Time of Evaluation Date of Evaluation: 12/06/16 Time of Evaluation: 21:45 - Subjective Subjective: pt seen and examined, chest pain resolved, Patient son refused the idea of rehab Objective - Vital Signs/Intake and Output Vital Signs (last 24 hours): Temp Pulse Resp BP Pulse Ox 98.2 F 74 20 163/76 H 97 12/05/16 23:20 12/06/16 04:18 12/05/16 23:20 12/05/16 23:20 12/05/16 23:20 - Medications Medications: Current Medications Carbidopa/Levodopa (Sinemet) 1 tab PO TID [facility] Last Admin: 12/05/16 18:22 Dose: 1 tab Enoxaparin Sodium (Lovenox) 40 mg SC DAILY [facility] Last Admin: 12/05/16 09:20 Dose: 40 mg Ferrous Sulfate (Feosol) 325 mg PO BID [facility] Last Admin: 12/05/16 18:21 Dose: 325 mg Hydrochlorothiazide (Hydrodiuril) 25 mg PO DAILY [facility] Last Admin: 12/05/16 09:26 Dose: 25 mg Insulin Aspart (Novolog) 1 unit SC [facility] PRN Reason: Protocol Last Admin: 12/05/16 22:06 Dose: Not Given Losartan Potassium (Cozaar) 100 mg PO DAILY [facility] Metformin HCl (Glucophage) 500 mg PO DAILY [facility] Last Admin: 12/05/16 09:21 Dose: 500 mg Nitroglycerin (Nitrostat Sl Tab) 0.4 mg SL Q5M PRN PRN Reason: Pain, moderate (4-7) Pantoprazole Sodium (Protonix Ec Tab) 40 mg PO DAILY [facility] Last Admin: 12/05/16 09:22 Dose: 40 mg Pneumococcal Polyvalent Vaccine (Pneumovax 23 Vaccine) 0.5 ml IM .ONCE ONE Stop: 12/07/16 10:01 Pramipexole Dihydrochloride (Mirapex) 0.5 mg PO TID [facility] Last Admin: 12/05/16 18:27 Dose: 0.5 mg Rosuvastatin Calcium (Crestor) 10 mg PO HS [facility] Last Admin: 12/05/16 22:04 Dose: 10 mg Trihexyphenidyl HCl (Artane) 2 mg PO TID [facility] Last Admin: 12/05/16 18:27 Dose: 2 mg - Labs Labs: 12/04/16 23:50 12/04/16 23:50 - Constitutional Appears: No Acute Distress, Chronically Ill - Head Exam Head Exam: ATRAUMATIC, NORMAL INSPECTION, NORMOCEPHALIC - Eye Exam Eye Exam: EOMI, Normal appearance, PERRL Pupil Exam: NORMAL ACCOMODATION, PERRL - Respiratory Exam Respiratory Exam: Clear to Ausculation Bilateral, NORMAL BREATHING PATTERN - Cardiovascular Exam Cardiovascular Exam: REGULAR RHYTHM, +S1, +S2. absent: Murmur - GI/Abdominal Exam GI & Abdominal Exam: Soft, Normal Bowel Sounds. absent: Tenderness Assessment and Plan (1) Fall Status: Acute (2) Chest pain Status: Acute (3) HTN (hypertension) Status: Acute (4) Osteoarthritis (arthritis due to wear and tear of joints) Status: Acute (5) Parkinson disease Status: Acute
[2016-12-06 07:27] LABS: BASO % 0.5 % (0.0-2.0); EOS # 0.2 K/uL (0.0-0.7); HEMATOCRIT 33.7 % (34.0-47.0); LYMPH # 1.4 K/uL (1.0-4.3); LYMPH % 18.1 % (20.0-40.0); MEAN CELL VOLUME 87.5 fL (81.0-99.0); MEAN CORPUSCULAR HEMOGLOBIN 28.6 pg (27.0-31.0); MEAN CORPUSCULAR HGB CONC 32.7 g/dL (33.0-37.0); MONO # 0.7 K/uL (0.0-0.8); MONO % 9.3 % (0.0-10.0); RED CELL DISTRIBUTION WIDTH 14.9 % (11.5-14.5); WHITE BLOOD COUNT 7.8 K/uL (4.8-10.8)
[2016-12-06 07:56] LABS: POTASSIUM 4.6 mmol/L (3.6-5.2)
[2016-12-06 08:00] LABS: CALCIUM 9.1 mg/dl (8.6-10.4)
[2016-12-06] MEDS: (Novolog) Insulin Aspart, Recombinant 100 u/ml 10 ml vial SC SCH ×4 (08:24→21:56)
[2016-12-06] MEDS: Pantoprazole 40 mg EC Tab PO SCH (09:36)
[2016-12-06] MEDS ORDERED: Enoxaparin 40 mg Syringe SC SCH (10:00)
--- NOTE | 2016-12-06 14:37 | PN ---
SUBJECTIVE: The patient denies any dizziness. She is still experiencing significant tremors. PHYSICAL EXAMINATION: VITAL SIGNS: Blood pressure 184/96, heart rate 88, temperature 98.2, respirations 18. HEENT: Frontal abrasions. NECK: No JVD. CHEST: Clear. HEART: S1 and S2 regular. EXTREMITIES: 1+ pitting edema. LABORATORY DATA: Hemoglobin and hematocrit 11 and 33.7, white count and platelet count are within normal limits. Today's BUN and creatinine are 31 and 1.6 respectively. Glucose 117. SMA-7 is within normal limit. EKG reveals normal sinus rhythm. Left axis deviation. LVH with repolarization changes. Echocardiography study revealed hypertensive heart with normal systolic function and good diastolic function. No pulmonary hypertension. ASSESSMENT: 1. Status post fall. 2. Parkinsonism. 3. Atypical chest pain, myocardial infarction is ruled out. 4. Uncontrolled hypertension. 5. Diabetes mellitus. RECOMMENDATIONS: Continue Cozaar 100 mg daily, Crestor 10 mg once a day, Glucophage 500 mg once a day, hydrochlorothiazide 25 mg once a day, Sinemet one tablet t.i.d. The Cozaar dose was doubled today because of uncontrolled hypertension and I will monitor the blood pressure on this new dose regimen. Wm Aldridge MD
--- NOTE | 2016-12-06 15:37 | CARD ---
APPROVED REPORT EKG Measurement Heart [id number] <Conclusion> Normal sinus rhythm Left axis deviation Left ventricular hypertrophy with repolarization abnormality Abnormal ECG
--- NOTE | 2016-12-06 15:40 | CARD ---
APPROVED REPORT EKG Measurement Heart [id number] <Conclusion> Sinus rhythm with 1st degree AV block Left axis deviation Minimal voltage criteria for LVH, may be normal variant Abnormal ECG
--- NOTE | 2016-12-06 15:41 | CARD ---
APPROVED REPORT EKG Measurement Heart [id number] <Conclusion> Sinus tachycardia Left axis deviation Left ventricular hypertrophy with repolarization abnormality Abnormal ECG
[2016-12-07 01:31] VITALS: RESP 20
[2016-12-07 07:32] LABS: FREE T4 1.14 ng/dL (0.78-2.19)
[2016-12-07 07:40] VITALS: BP 161/87; PULSE 82; TEMP 98.5; O2SAT 94
[2016-12-07 07:47] LABS: THYROID STIMULATING HORMONE 1.38 mIU/L (0.46-4.68)
[2016-12-07 08:23] LABS: FOLATE > 20.0 ng/mL
[2016-12-07] MEDS ORDERED: Pneumococcal 23-Valent Vaccine IM ONE (10:00)
[2016-12-07] MEDS ORDERED: Influenza Vaccine 60 mcg/0.5 mL SYR (4YR UP) IM ONE (10:02)
[2016-12-07] MEDS: Carbidopa/Levodopa 25/250 PO SCH ×2 (11:00→14:45)
[2016-12-07] MEDS: Pantoprazole 40 mg EC Tab PO SCH (11:06)
--- NOTE | 2016-12-07 11:12 | CON ---
NEUROLOGICAL INITIAL CONSULTATION DATE: 12/07/2016 ATTENDING PHYSICIAN: Ronaldo Boles MD LOCATION: Room number 668, bed B. REASON FOR CONSULTATION: Parkinson's disease. HISTORY OF PRESENT ILLNESS: Ms. Beatriz Sy is an 81-year-old right-handed female admitted with a history of left-sided chest pain and shortness of breath. From an neurological point of view, I was called in to evaluate her for her Parkinson disease. Ms. Beatriz Sy is an 81-year-old right-handed female who is in usual state of health presenting with episode of shortness of breath and chest pain around 7:00 p.m. prior to the admission. The pain was persistent and her family members decided to bring her into hospital for three to four hour period for further evaluation of her problem. Over the time, she came to the emergency room with the symptoms were somewhat resolved. From neurological point of view, I was called to evaluate her for existing Parkinson's disease. She has been suffering from Parkinson's disease for more than 10 years, has been followed by local neurologist and been on multiple medications for the same. She claims that her tremor is still more than before, she needs assistance to walk. There is no history of recent falls. No history of bowel and bladder incontinence or constipation. Her sleep is good. No history of hallucinations. PAST MEDICAL HISTORY: Anemia, peptic ulcer disease, hypertension, osteoporosis, Parkinson's disease, and chronic renal disease. PAST SURGICAL HISTORY: Not available. REVIEW OF SYSTEMS: A 12-point system has been reviewed. From neuro, worsening tremor. MEDICATIONS: Losartan, rosuvastatin, Feosol, Glucophage, benztropine, hydrochlorothiazide, Mirapex, nitroglycerin, insulin, and Sinemet. PHYSICAL EXAMINATION: VITAL SIGNS: Blood pressure of 161/92 with mean arterial pressure of 115, respiratory rate of 16, temperature of 97.7, and pulse rate is 72 and regular. NECK: Supple. No carotid bruit. HEART: Sounds are regular. CHEST: Fair air entry. EXTREMITIES: No edema in the legs. NEUROLOGICAL: MENTAL STATUS EXAMINATION: She is awake, alert and oriented to person, place, and time. No sign of depression. No sign of hallucination. Her mentation is normal for her age. CRANIAL NERVE EXAMINATION: Visual field respond to visual threat. Pupils are reactive to light. Extraocular movements markedly decreased on lateral gaze. Vertical gaze is preserved. No facial sensory deficits. No facial asymmetry. No excessive salivation. Tongue is moist. MOTOR EXAMINATION: She could able to lift both upper extremities against the gravity. No sensory tremor. She could able to lift both lower extremities against the gravity. DEEP TENDON REFLEXES: Biceps, brachialis, triceps 2+, both knees are trace, and both ankles are absent. Plantars are equivocal response on both sides. SENSORY EXAMINATION: Significant sensory motor neuropathy, which is probably secondary to her diabetes mellitus. COORDINATION: Hcuaxx-xjqr-cyaufi test is intact. Parkinson's features that include her mask face. Myerson sign positive. Bradykinetic. Cogwheel rigidity more pronounced on her right more than her left side. Resting tremors noted again more pronounced on her right side. Gait is deferred at this time. DIAGNOSTIC DATA: Workup, CT of the head reviewed, atrophy with a small vessel disease. No acute pathology is noted. EKG, normal sinus rhythm. LABORATORY DATA: Blood workup: WBC of 7.8, hemoglobin of 11.1, hematocrit of 33.7, and platelets of 243. Sodium of 135, potassium of 4.6,chloride of 99, bicarbonate of 25, BUN of 31, GFR of 37, and glucose of 142. Calcium is 9.1. CONCLUSIONS: 1. Ms. Beatriz Sy has been presenting with polypharmacy for her Parkinson's disease, which is on lower therapeutic dose for her at present. 2. 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 3. Diabetes/hypertension and chronic renal disease. RECOMMENDATIONS: 1. Dementia workup. 2. Sinemet dose is increased to 25/250 three times a day. Benztropine can be taken because of side effects related to her age and other medication. When she is stable probably pramipexole can be taper off due to complications with the polypharmacy as well. 3. Diabetic control, blood pressure control. The patient should get out of the bed and therapy should be instituted. 4. The patient will be followed closely. Yuval Combs MD
[2016-12-07] MEDS: (Novolog) Insulin Aspart, Recombinant 100 u/ml 10 ml vial SC SCH ×2 (11:27→12:48)
--- NOTE | 2016-12-07 14:54 | CP.PCM.CON ---
History of Present Illness - History of Present Illness History of Present Illness: CC: fall x 1 day Chest pain x 1 day HPI: 81 year old female with a history of HTN , parkinson disease, hyperlipdemia and hyperthyroid presents to the ED with complaints of acute onset of intermittent left sided chest pain with associated shortness of breath beginning a few hours prior to arrival at 7pm. Patient did not tell anyone about the pain until her son was home from work at 11pm. She has no known cardiac history. On arrival, was a 5/10 but has since resolved. Pt is a poor historian she said she hit her head and chest and later on develop chest pain, but she cannot give exact secnario and information that what happened and how mario she fell. She denies cough, production of sputum, fever, radiation of pain , nausea, or vomiting. She c/o some headache and chornic knee pain. There is no h/o abdominal pain, dyspesia, hematuria, pyuria, nausea, vomitting, polyphagia, polydispsia, no sneezing, itchy eyes, itchy nose Has known CKD; hx obtained from chart- patient cannot provide details Review of Systems - Review of Systems Systems not reviewed;Unavailable: Altered Mental Status Past Patient History - Infectious Disease Hx of Infectious Diseases: None - Past Medical History & Family History Past Medical History?: Yes Past Family History: Reviewed and not pertinent - Past Social History Smoking Status: Never Smoked Chewing Tobacco Use: No Cigar Use: No Drugs: Denies - CARDIAC Hx Hypertension: Yes - PULMONARY Hx Respiratory Disorders: No - NEUROLOGICAL Hx Neurological Disorder: Yes Hx Parkinson's Disease: Yes - HEENT Hx HEENT Problems: Yes Other/Comment: DIABETIC RETINOPATHY - RENAL Hx Chronic Kidney Disease: Yes - ENDOCRINE/METABOLIC Hx Endocrine Disorders: Yes Hx Diabetes Mellitus Type 2: Yes - HEMATOLOGICAL/ONCOLOGICAL Hx Blood Disorders: Yes Hx Anemia: Yes - INTEGUMENTARY Hx Dermatological Problems: No - MUSCULOSKELETAL/RHEUMATOLOGICAL Hx Musculoskeletal Disorders: Yes Hx Falls: Yes Hx Osteoporosis: Yes Other/Comment: restless leg syndrome - GASTROINTESTINAL Hx Gastrointestinal Disorders: Yes Hx Ulcer: Yes - GENITOURINARY/GYNECOLOGICAL Hx Genitourinary Disorders: Yes Hx Urinary Tract Infection: Yes Other/Comment: has appointment to see supervisor painting department'for pain to left side of back kidney' - PSYCHIATRIC Hx Psychophysiologic Disorder: No Hx Substance Use: No - SURGICAL HISTORY Hx Surgeries: Yes Hx Dilation and Curettage: Yes (1988) Hx Thyroidectomy: Yes Other/Comment: 11/21/16 sp endoscopy 'bleeding ulcer' - ANESTHESIA Hx Anesthesia: Yes Hx Anesthesia Reactions: No Meds Home Medications: Home Medication List Medication Instructions Recorded Confirmed Type Carbidopa/Levodopa 1 each PO TID #90 tablet 12/07/16 Rx [Carbidopa-Levodopa 25-250 Tab] Pramipexole Di-HCl [Mirapex] 0.5 mg PO TID #90 12/07/16 Rx Valsartan [Diovan] 160 mg PO DAILY #0 12/07/16 12/04/16 Rx Allergies/Adverse Reactions: Allergies Allergy/AdvReac Type Severity Reaction Status Date / Time No Known Allergies Allergy Verified 12/04/16 23:39 - Medications Medications: Current Medications Carbidopa/Levodopa (Sinemet) 1 tab PO TID [facility] Last Admin: 12/07/16 14:45 Dose: 1 tab Ferrous Sulfate (Feosol) 325 mg PO BID@0800,1600 [facility] Last Admin: 12/07/16 09:15 Dose: 325 mg Hydrochlorothiazide (Hydrodiuril) 25 mg PO DAILY [facility] Last Admin: 12/07/16 11:05 Dose: 25 mg Insulin Aspart (Novolog) 1 unit SC [facility] PRN Reason: Protocol Last Admin: 12/07/16 12:48 Dose: Not Given Losartan Potassium (Cozaar) 100 mg PO DAILY [facility] Last Admin: 12/07/16 11:05 Dose: 100 mg Metformin HCl (Glucophage) 500 mg PO DAILY [facility] Last Admin: 12/07/16 11:06 Dose: 500 mg Nitroglycerin (Nitrostat Sl Tab) 0.4 mg SL Q5M PRN PRN Reason: Pain, moderate (4-7) Pantoprazole Sodium (Protonix Ec Tab) 40 mg PO DAILY [facility] Last Admin: 12/07/16 11:06 Dose: 40 mg Pramipexole Dihydrochloride (Mirapex) 0.5 mg PO TID [facility] Last Admin: 12/07/16 14:46 Dose: 0.5 mg Rosuvastatin Calcium (Crestor) 10 mg PO HS [facility] Last Admin: 12/06/16 21:56 Dose: 10 mg Physical Exam - Constitutional Appears: No Acute Distress, Chronically Ill - Head Exam Head Exam: ATRAUMATIC, NORMAL INSPECTION - Eye Exam Eye Exam: EOMI, Normal appearance - Neck Exam Neck exam: Positive for: Normal Inspection. Negative for: Tenderness - Respiratory Exam Respiratory Exam: Clear to Auscultation Bilateral, NORMAL BREATHING PATTERN - Cardiovascular Exam Cardiovascular Exam: REGULAR RHYTHM, +S1 - GI/Abdominal Exam GI & Abdominal Exam: Soft. absent: Tenderness - Extremities Exam Extremities exam: Positive for: normal inspection. Negative for: pedal edema, tenderness - Neurological Exam Neurological exam: Altered, CN II-XII Intact - Skin Skin Exam: Dry, Warm Results - Vital Signs Recent Vital Signs: Last Vital Signs Temp 98.5 F 12/07/16 07:00 Pulse 82 12/07/16 07:00 Resp 20 12/07/16 07:00 BP 161/87 H 12/07/16 07:00 Pulse Ox 94 L 12/07/16 07:00 - Labs Result Diagrams: 12/06/16 07:06 12/06/16 07:06 Labs: Laboratory Results - last 24 hr 12/06/16 12/06/16 12/07/16 17:14 21:30 06:45 ESR POC Glucose (mg/dL) 137 H 144 H 142 H Hemoglobin A1c Vitamin B12 Folate Free T4 TSH 3rd Generation 12/07/16 12/07/16 12/07/16 06:54 06:54 06:54 ESR 45 H POC Glucose (mg/dL) Hemoglobin A1c 7.3 H Vitamin B12 Folate Free T4 1.14 TSH 3rd Generation 1.38 12/07/16 12/07/16 06:54 11:09 ESR POC Glucose (mg/dL) 127 H Hemoglobin A1c Vitamin B12 639 Folate > 20.0 Free T4 TSH 3rd Generation Assessment & Plan (1) Fall (on) (from) other stairs and steps, initial encounter Status: Acute (2) Hypertensive chronic kidney disease with stage 1 through stage 4 chronic kidney disease, or unspecified chronic kidney disease Status: Acute (3) Fall Status: Acute (4) Parkinsons disease Status: Chronic - Assessment and Plan (Free Text) Plan: Will recheck chemistries Check for proteinuria HTN elevated- increase losartan
--- NOTE | 2016-12-07 15:38 | CP.PCM.PN ---
Subjective - Date & Time of Evaluation Date of Evaluation: 12/07/16 Time of Evaluation: 11:25 - Subjective Subjective: Patient seen and examined today, awake , alert, oriented , denie s any chest pain, sob, head ache Objective - Vital Signs/Intake and Output Vital Signs (last 24 hours): Temp Pulse Resp BP Pulse Ox 98.5 F 82 20 161/87 H 94 L 12/07/16 07:00 12/07/16 07:00 12/07/16 07:00 12/07/16 07:00 12/07/16 07:00 Intake and Output: 12/07/16 12/07/16 06:59 18:59 Intake Total 320 Balance 320 - Medications Medications: Current Medications Amlodipine Besylate (Norvasc) 2.5 mg PO DAILY [facility] Carbidopa/Levodopa (Sinemet) 1 tab PO TID [facility] Last Admin: 12/07/16 14:45 Dose: 1 tab Ferrous Sulfate (Feosol) 325 mg PO BID@0800,1600 [facility] Last Admin: 12/07/16 09:15 Dose: 325 mg Hydrochlorothiazide (Hydrodiuril) 25 mg PO DAILY [facility] Last Admin: 12/07/16 11:05 Dose: 25 mg Insulin Aspart (Novolog) 1 unit SC [facility] PRN Reason: Protocol Last Admin: 12/07/16 12:48 Dose: Not Given Losartan Potassium (Cozaar) 100 mg PO DAILY [facility] Last Admin: 12/07/16 11:05 Dose: 100 mg Metformin HCl (Glucophage) 500 mg PO DAILY [facility] Last Admin: 12/07/16 11:06 Dose: 500 mg Nitroglycerin (Nitrostat Sl Tab) 0.4 mg SL Q5M PRN PRN Reason: Pain, moderate (4-7) Pantoprazole Sodium (Protonix Ec Tab) 40 mg PO DAILY [facility] Last Admin: 12/07/16 11:06 Dose: 40 mg Pramipexole Dihydrochloride (Mirapex) 0.5 mg PO TID [facility] Last Admin: 12/07/16 14:46 Dose: 0.5 mg Rosuvastatin Calcium (Crestor) 10 mg PO HS [facility] Last Admin: 12/06/16 21:56 Dose: 10 mg - Labs Labs: 12/06/16 07:06 12/06/16 07:06 - Constitutional Appears: Well, No Acute Distress - Head Exam Additional comments: fading echymosis fore head and under the R eye - ENT Exam ENT Exam: Mucous Membranes Moist - Respiratory Exam Respiratory Exam: Clear to Ausculation Bilateral, NORMAL BREATHING PATTERN - Cardiovascular Exam Cardiovascular Exam: REGULAR RHYTHM, +S1, +S2 - Neurological Exam Neurological Exam: Alert, Awake Assessment and Plan - Assessment and Plan (Free Text) Assessment: A/P 81 YR OLLD FEMALE WITH PMHX OF PARKINSONS DISEASE ADMITTED FOR CHEST PAIN AN DS /P FALL AT HOME TROPONIN X3 - NEGATIVE CT- HEAD - EKG- NSR with LVH seen by Dr. Combs today , medication adjust ment done EEG done - result pending Patient son refused the idea of rehab and opted to take her MOM home d/w Dr. Boles, cleared for discharge home today and f/u with PMD in 1 week CM arranged VNA service for home PT
--- NOTE | 2016-12-07 16:25 | PN ---
SUBJECTIVE: The patient is anxious and crying because of her constant tremors. She denies any chest pain, headache or dizziness. PHYSICAL EXAMINATION: VITAL SIGNS: Blood pressure 161/87, heart rate 82, temperature 98.5, respirations 20. HEENT: Head is normocephalic. CHEST: Clear. HEART: S1 and S2 regular. EXTREMITIES: No edema. LABORATORY DATA: Today's blood sugar is 127, hemoglobin A1c is 7.3. Free T4 and TSH levels are within normal limits. ASSESSMENT: 1. Status post fall. 2. Atypical chest pain, myocardial infarction is ruled out. 3. Parkinsonism. 4. Hypertension. RECOMMENDATION: Continue Cozaar at 100 mg once a day, Crestor at 10 mg once a day, Feosol at 1 tablet twice a day, Sinemet at 1 tablet t.i.d., Mirapex 0.5 mg t.i.d. and hydrochlorothiazide 25 mg once a day. I will follow up with a neurologist about this patient's persistent tremors. Wm Aldridge MD
[2016-12-07 16:56] LABS: POTASSIUM 4.5 mmol/L (3.6-5.2)
[2016-12-07 16:58] LABS: BILIRUBIN,TOTAL 0.6 mg/dL (0.2-1.3); TOTAL PROTEIN 7.7 g/dL (6.3-8.3)
[2016-12-07 16:59] LABS: CALCIUM 9.4 mg/dl (8.6-10.4)
[2016-12-07 20:32] LABS: RBC URINE 1 /hpf (0-3); URINE BILIRUBIN NEGATIVE (NEGATIVE); URINE BLOOD NEGATIVE (NEGATIVE); URINE COLOR Yellow (YELLOW); URINE GLUCOSE (UA) NORMAL (Normal); URINE KETONE NEGATIVE (NEGATIVE); URINE LEUKOCYTE ESTERASE 1+ Leu/uL (Negative); URINE PROTEIN 1+ mg/dL (NEGATIVE); URINE UROBILINOGEN NORMAL mg/dL (0.2-1.0); WBC URINE 13 /hpf (0-5)
--- NOTE | 2016-12-08 03:16 | CP.PCM.DIS ---
Provider - Provider Date of Admission: 12/05/16 01:06 Attending physician: Ronaldo Boles MD Primary care physician: Tianna Oliveira MD Time Spent in preparation of Discharge (in minutes): 45 Diagnosis - Discharge Diagnosis (1) Fall Status: Acute (2) Chest pain Status: Acute (3) HTN (hypertension) Status: Acute (4) Osteoarthritis (arthritis due to wear and tear of joints) Status: Acute (5) Parkinson disease Status: Acute Hospital Course - Lab Results Lab Results: Most Recent Lab Values WBC 7.8 K/uL (4.8-10.8) 12/06/16 07:06 RBC 3.85 Mil/uL (3.80-5.20) 12/06/16 07:06 Hgb 11.0 g/dL (11.0-16.0) 12/06/16 07:06 Hct 33.7 % (34.0-47.0) L 12/06/16 07:06 MCV 87.5 fL (81.0-99.0) 12/06/16 07:06 MCH 28.6 pg (27.0-31.0) 12/06/16 07:06 MCHC 32.7 g/dL (33.0-37.0) L 12/06/16 07:06 RDW 14.9 % (11.5-14.5) H 12/06/16 07:06 Plt Count 243 K/uL (130-400) 12/06/16 07:06 MPV 9.0 fL (7.2-11.7) 12/06/16 07:06 Neut % (Auto) 70.1 % (50.0-75.0) 12/06/16 07:06 Lymph % (Auto) 18.1 % (20.0-40.0) L 12/06/16 07:06 [place] % (Auto) 9.3 % (0.0-10.0) 12/06/16 07:06 Eos % (Auto) 2.0 % (0.0-4.0) 12/06/16 07:06 Baso % (Auto) 0.5 % (0.0-2.0) 12/06/16 07:06 Neut # 5.5 K/uL (1.8-7.0) 12/06/16 07:06 Lymph # 1.4 K/uL (1.0-4.3) 12/06/16 07:06 [place] # 0.7 K/uL (0.0-0.8) 12/06/16 07:06 Eos # 0.2 K/uL (0.0-0.7) 12/06/16 07:06 Baso # 0.0 K/uL (0.0-0.2) 12/06/16 07:06 ESR 45 mm/hr (0-20) H 12/07/16 06:54 Sodium 134 mmol/L (132-148) 12/07/16 16:48 Potassium 4.5 mmol/L (3.6-5.2) 12/07/16 16:48 Chloride 100 mmol/L (98-107) 12/07/16 16:48 Carbon Dioxide 22 mmol/L (22-30) 12/07/16 16:48 Anion Gap 16 (10-20) 12/07/16 16:48 BUN 29 mg/dL (7-17) H 12/07/16 16:48 Creatinine 1.6 mg/dL (0.7-1.2) H 12/07/16 16:48 Est GFR ( Amer) 37 12/07/16 16:48 Est GFR (Non-Af Amer) 31 12/07/16 16:48 POC Glucose (mg/dL) 127 mg/dL (65-110) H 12/07/16 11:09 Random Glucose 123 mg/dL (65-105) H 12/07/16 16:48 Hemoglobin A1c 7.3 % (4.2-6.5) H 12/07/16 06:54 Calcium 9.4 mg/dl (8.6-10.4) 12/07/16 16:48 Phosphorus 4.0 mg/dL (2.5-4.5) 12/07/16 16:48 Total Bilirubin 0.6 mg/dL (0.2-1.3) 12/07/16 16:48 AST 30 U/L (14-36) 12/07/16 16:48 ALT 32 U/L (9-52) 12/07/16 16:48 Alkaline Phosphatase 70 U/L (38-126) 12/07/16 16:48 Total Creatine Kinase 139 U/L (30-135) H 12/05/16 12:00 CK-MB (Mass) 2.88 ng/mL (0.0-3.38) 12/05/16 12:00 Troponin I 0.0300 ng/mL (0.00-0.120) 12/04/16 23:50 Troponin I, Quant 0.0360 ng/mL (0.00-0.120) 12/05/16 12:00 NT-Pro-B Natriuret Pep 404 pg/mL (0-900) 12/04/16 23:50 Total Protein 7.7 g/dL (6.3-8.3) 12/07/16 16:48 Albumin 3.9 g/dL (3.5-5.0) 12/07/16 16:48 Globulin 3.8 gm/dL (2.2-3.9) 12/07/16 16:48 Albumin/Globulin Ratio 1.0 (1.0-2.1) 12/07/16 16:48 Vitamin B12 639 pg/mL (239-931) 12/07/16 06:54 Folate > 20.0 ng/mL 12/07/16 06:54 Free T4 1.14 ng/dL (0.78-2.19) 12/07/16 06:54 TSH 3rd Generation 1.38 mIU/L (0.46-4.68) 12/07/16 06:54 Urine Color Yellow (YELLOW) 12/07/16 20:19 Urine Clarity Clear (Clear) 12/07/16 20:19 Urine pH 6.0 (5.0-8.0) 12/07/16 20:19 Ur Specific Delta 1.010 (1.003-1.030) 12/07/16 20:19 Urine Protein 1+ mg/dL (NEGATIVE) H 12/07/16 20:19 Urine Glucose (UA) Normal mg/dL (Normal) 12/07/16 20:19 Urine Ketones Negative mg/dL (NEGATIVE) 12/07/16 20:19 Urine Blood Negative (NEGATIVE) 12/07/16 20:19 Urine Nitrate Negative (NEGATIVE) 12/07/16 20:19 Urine Bilirubin Negative (NEGATIVE) 12/07/16 20:19 Urine Urobilinogen Normal mg/dL (0.2-1.0) 12/07/16 20:19 Ur Leukocyte Esterase 1+ Theo/uL (Negative) H 12/07/16 20:19 Urine WBC (Auto) 13 /hpf (0-5) H 12/07/16 20:19 Urine RBC (Auto) 1 /hpf (0-3) 12/07/16 20:19 Ur Squamous Epith Cells 4 /hpf (0-5) 12/07/16 20:19 U Random Total Protein 42.0 mg/dL (0.0-12.0) H 12/07/16 20:00 Ur Random Sodium 50 mmol/L 12/07/16 20:19 RPR Nonreactive (NONREACTIVE) 12/07/16 06:54 - Hospital Course Hospital Course: A/P 81 YR OLLD FEMALE WITH PMHX OF PARKINSONS DISEASE ADMITTED FOR CHEST PAIN AN DS /P FALL AT HOME TROPONIN X3 - NEGATIVE CT- HEAD - EKG- NSR with LVH seen by Dr. Combs today , medication adjust ment done EEG done - result pending Patient son refused the idea of rehab and opted to take her MOM home cleared for discharge home today and f/u with PMD in 1 week CM arranged VNA service for home PT Discharge Exam - Head Exam Head Exam: ATRAUMATIC, NORMAL INSPECTION - Eye Exam Eye Exam: EOMI, Normal appearance, PERRL Pupil Exam: NORMAL ACCOMODATION, PERRL - Respiratory Exam Respiratory Exam: Clear to PA & Lateral, NORMAL BREATHING PATTERN - Cardiovascular Exam Cardiovascular Exam: REGULAR RHYTHM, +S1, +S2 - GI/Abdominal Exam GI & Abdominal Exam: Normal Bowel Sounds Discharge Plan - Discharge Medications Prescriptions: Carbidopa/Levodopa [Carbidopa-Levodopa 25-250 Tab] 1 each PO TID #90 tablet Pramipexole Di-HCl [Mirapex] 0.5 mg PO TID #90 - Follow Up Plan Condition: GUARDED Disposition: HOME/ ROUTINE Instructions: Carbidopa/Levodopa (By mouth), Pramipexole (By mouth), Chest Pain (DC), Parkinson Disease (DC) Additional Instructions: Please follow up with PMD in 1 week Please follow up with neurologist in 2 weeks - f/u for parkinson disease Continue medication as per Med. REc PLEASE CARDROOM HAND MEDICATION FROM [id number] , E PRESCRIBED Referrals: Yuval Combs MD [Staff Provider] - Tianna Oliveira MD [Primary Care Provider] -
== END 2016-12-07 16:45 | disposition home or self-care (01) | DRG 605 ==
LOC: SUPCPDRO 23:32 → C.ER 23:32 → C.6T 12-05 01:06
PROVIDERS: ADMIT Internal Medicine; ATTEND Internal Medicine
DX: S00.83XA Contusion of other part of head, initial encounter (principal); N18.4 Chronic kidney disease, stage 4 (severe); E11.22 Type 2 diabetes mellitus with diabetic chronic kidney disease; E11.42 Type 2 diabetes mellitus with diabetic polyneuropathy; R07.89 Other chest pain; G20 Parkinson's disease; W01.0XXA Fall on same level from slipping, tripping and stumbling without subsequent striking against object, initial encounter; E87.5 Hyperkalemia; E11.319 Type 2 diabetes mellitus with unspecified diabetic retinopathy without macular edema; G25.81 Restless legs syndrome; I12.9 Hypertensive chronic kidney disease with stage 1 through stage 4 chronic kidney disease, or unspecified chronic kidney disease; M19.90 Unspecified osteoarthritis, unspecified site; M81.0 Age-related osteoporosis without current pathological fracture; E05.90 Thyrotoxicosis, unspecified without thyrotoxic crisis or storm; Z87.11 Personal history of peptic ulcer disease; Z87.440 Personal history of urinary (tract) infections; Y92.009 Unspecified place in unspecified non-institutional (private) residence as the place of occurrence of the external cause; Z79.4 Long term (current) use of insulin; Z79.84 Long term (current) use of oral hypoglycemic drugs

== ENCOUNTER 2016-12-11 22:05 | Emergency (ER) | payer MEDICARE, MEDICAID ==
[2016-12-11 22:05] VITALS: BMI 26.1
[2016-12-11 22:19] VITALS: RESP 16; TEMP 98.2
--- NOTE | 2016-12-11 22:31 | C.PDOC ---
History Of Present Illness Patient presents with a Hx of Parkinson's disease and hypertension presents to the ER with anxiety. Patient was very anxious because she tried to call her son on the phone but he was on the phone. Patient states she just wants the tremors to go away; denies any chest pain, shortness of breath, or palpitations. Time Seen by Provider: 12/11/16 22:31 Chief Complaint (Nursing): Anxiety History Per: Patient History/Exam Limitations: no limitations Onset/Duration Of Symptoms: Hrs Suicide/Self Injury Attempted (Context): None Modifying Factor(s): None Severity: None Pain Scale Rating Of: 0 Associated Symptoms: Anxiety. denies: Depression, Suicidal Thoughts, Suicidal Plan Involuntary Hold By: None Recent travel outside of the [place]: No Past Medical History Reviewed: Historical Data, Nursing Documentation, Vital Signs Vital Signs: Last Vital Signs Temp 98.2 F 12/11/16 22:15 Pulse 99 H 12/11/16 22:15 Resp 16 12/11/16 22:15 BP 180/90 H 12/11/16 22:15 Pulse Ox 96 12/11/16 23:40 - Medical History PMH: Anemia, Gastrointestinal Ulcer, HTN, Osteoporosis, Parkinson's Disease, Chronic Kidney Disease Surgical History: Endoscopy - [facility] Procedures EXCISION OF STOMACH, ENDO, DIAGN (04/19/16) TRANSFUSE NONAUT RED BLOOD CELLS IN PERIPH VEIN, PERC (04/19/16) Family History: States: Unknown Family Hx - Social History Hx Tobacco Use: No Hx Alcohol Use: No Hx Substance Use: No - Immunization History Hx Tetanus Toxoid Vaccination: No Hx Influenza Vaccination: No Hx Pneumococcal Vaccination: Yes Review Of Systems Cardiovascular: Negative for: Chest Pain, Palpitations Respiratory: Negative for: Shortness of Breath Musculoskeletal: Negative for: Back Pain Skin: Negative for: Rash Neurological: Negative for: Weakness Psych: Positive for: Anxiety. Negative for: Depression, Suicidal ideation Physical Exam - Physical Exam Appears: Non-toxic, Other (Awake, alert) Skin: Warm, Dry Head: Normacephalic Eye(s): bilateral: Normal Inspection Oral Mucosa: Moist Teeth: Edentulous Neck: Supple Chest: Symmetrical Cardiovascular: Rhythm Regular Respiratory: No Rales, No Rhonchi, No Wheezing Gastrointestinal/Abdominal: Soft, No Tenderness Back: No CVA Tenderness Extremity: No Tenderness, Other (Cog wheel rigidity) Extremity: Bilateral: Atraumatic Pulses: Left Dorsalis Pedis: Normal, Right Dorsalis Pedis: Normal Neurological/Psych: Oriented x3, Other (resting tremors) Gait: Unsteady ED Course And Treatment ECG: Interpreted By Me, Viewed By Me ECG Rhythm: Sinus Rhythm (98), 1st Degree HB, Nonspecific Changes (unchanged from 12/05/16) O2 Sat by Pulse Oximetry: 96 (room air) Pulse Ox Interpretation: Normal Progress Note: EKG ordered. son at bedside and agrees with taking his mother home. Will return if symptoms recur. Has follow up with dr lauren Reevaluation Time: 23:51 Reassessment Condition: Improved Medical Decision Making Medical Decision Making: Upon provider reevaluation patient is feeling better, is medically stable, and requires no further treatment in the ED at this time. Patient will be discharged home . Counseling was provided and all questions were answered regarding diagnosis and need for follow up with dr. lauren. There is agreement to discharge plan. Return if symptoms persist or worsen. Disposition Counseled Patient/Family Regarding: Studies Performed, Diagnosis, Need For Followup - Disposition Referrals: Tianna Lauren MD [Non-Staff] - Disposition: HOME/ ROUTINE Disposition Time: 22:31 Condition: FAIR Instructions: Anxiety (ED) Forms: [employer] (Singaporean) - Clinical Impression Clinical Impression: Anxiety - Scribe Statement The provider has reviewed the documentation as recorded by the Shell Barrios Provider Attestation: All medical record entries made by the Zainibglenna were at my direction and personally dictated by me. I have reviewed the chart and agree that the record accurately reflects my personal performance of the history, physical exam, medical decision making, and the department course for this patient. I have also personally directed, reviewed, and agree with the discharge instructions and disposition.
[2016-12-12 00:12] VITALS: BP 170/93; PULSE 96; O2SAT 95
--- NOTE | 2016-12-12 15:23 | CARD ---
APPROVED REPORT EKG Measurement Heart [id number] <Conclusion> Normal sinus rhythm Left ventricular hypertrophy with QRS widening and repolarization abnormality Abnormal ECG
== END 2016-12-12 00:26 | disposition home or self-care (01) ==
LOC: C.ER 22:05
DX: F41.9 Anxiety disorder, unspecified (principal); I10 Essential (primary) hypertension; G20 Parkinson's disease

== ENCOUNTER 2017-12-18 21:22 | Emergency (ER) | payer MEDICARE, MEDICAID ==
[2017-12-18 21:22] VITALS: BMI 26.1
[2017-12-18] MEDS ORDERED: Sodium Chloride 0.9% 1,000 ML IV STA (22:24)
--- NOTE | 2017-12-18 22:56 | C.PDOC ---
History Of Present Illness 82 year old female with a PMHx of HTN, chronic kidney disease, and Parkinson's disease presents to the ER with a complaint of right flank pain that began 6 hours ago while laying down. Patient states the pain radiates from her right sided back to her lateral right side. Denies fever, nausea, vomiting, bowel changes, dysuria, or hematuria. Patient has had kidney stones in the past. Denies smoking ever. Time Seen by Provider: 12/18/17 22:13 Chief Complaint (Nursing): Back Pain History Per: Patient History/Exam Limitations: no limitations Onset/Duration Of Symptoms: Hrs, Sudden Onset Current Symptoms Are (Timing): Still Present Quality Of Discomfort: Unable To Describe Previous Symptoms: None Associated Symptoms: None Exacerbating Factor(s): Nothing Recent travel outside of the [place]: No Past Medical History Reviewed: Historical Data, Nursing Documentation, Vital Signs Vital Signs: Last Vital Signs Temp 97.6 F 12/18/17 21:42 Pulse 96 H 12/18/17 21:42 Resp 16 12/18/17 21:42 BP 197/95 H 12/18/17 21:42 Pulse Ox - Medical History PMH: Anemia, Gastrointestinal Ulcer, HTN, Osteoporosis, Parkinson's Disease, Chronic Kidney Disease Denies: Fractures Surgical History: Endoscopy - [facility] Procedures EXCISION OF STOMACH, ENDO, DIAGN (04/19/16) TRANSFUSE NONAUT RED BLOOD CELLS IN PERIPH VEIN, PERC (04/19/16) Family History: States: Unknown Family Hx - Social History Hx Tobacco Use: No Hx Alcohol Use: No Hx Substance Use: No - Immunization History Hx Tetanus Toxoid Vaccination: No Hx Influenza Vaccination: No Hx Pneumococcal Vaccination: Yes Review Of Systems Except As Marked, All Systems Reviewed And Found Negative. Constitutional: Negative for: Fever Cardiovascular: Negative for: Chest Pain Musculoskeletal: Positive for: Other (Right back pain radiating to right side) Physical Exam - Physical Exam Additional Physical Exam Comments: Constitutional: No acute distress. Head: Normocephalic. Atraumatic. Eyes: PERRL. ENT: Moist mucous membranes. Neck: Supple. Cardiovascular: Regular rate. Radial pulse 2+ bilaterally. Chest: No tenderness. Respiratory: Clear to auscultation bilaterally. GI: Soft. Nontender. Nondistended. Back: No CVA tenderness. Musculoskeletal: No tenderness or swelling of extremities. Skin: No rash. Neurologic: Resting tremor. ED Course And Treatment - Laboratory Results Result Diagrams: 12/18/17 23:38 12/18/17 23:38 Medical Decision Making Medical Decision Making: CT abd/pel Blood work CT abd/pel Findings Lower thorax Heart is moderately enlarged. Scarring is seen in the right middle lobe, jaye gula and lung bases. Small hiatal hernia is seen. Liver Unremarkable. No gross lesion or ductal dilatation. Gallbladder and bile ducts Unremarkable. Pancreas Severely atrophic and fatty replaced. Spleen Unremarkable. Adrenals Unremarkable. No mass. Kidneys and ureters The right kidney is moderately atrophic. The left kidney mildly atrophic. Both kidneys demonstrate cortical thinning. Left extra-renal pelvis is seen. Vasculature Unremarkable. No aortic aneurysm. Bowel Moderate amount of fecal material is seen suggesting constipation. Appendix Normal appendix. Peritoneum Unremarkable. No free fluid. No free air. Lymph nodes Unremarkable. No enlarged lymph nodes. Bladder Unremarkable. Reproductive Unremarkable. Bones No acute fracture. Other Findings None. Impression Severely atrophic and fatty replaced pancreas. Atrophic bilateral kidneys with cortical thinning. Left extra-renal pelvis is seen. Moderate cardiomegaly. Scarring in right middle lobe, lingula and lung bases. Small hiatal hernia. Constipation. Patient in no distress. Discharged home, f/u PMD, return to ED for worsening pain, fever, vomiting, or any other problem. Disposition - Disposition Referrals: Nate Singh DO [Staff Provider] - Disposition: HOME/ ROUTINE Disposition Time: 00:51 Condition: STABLE Prescriptions: Polyethylene Glycol 3350 [Miralax] 17 gm PO DAILY #238 gm Instructions: Constipation in Adults Forms: [facility] (Danish) - Clinical Impression Clinical Impression: Constipation - Scribe Statement The provider has reviewed the documentation as recorded by the Scribglenna [place] All medical record entries made by the Scribe were at my direction and personally dictated by me. I have reviewed the chart and agree that the record accurately reflects my personal performance of the history, physical exam, medical decision making, and the department course for this patient. I have also personally directed, reviewed, and agree with the discharge instructions and disposition.
[2017-12-18 23:41] LABS: BASO # 0.1 K/uL (0.0-0.2); BASO % 0.6 % (0.0-2.0); EOS # 0.1 K/uL (0.0-0.7); EOS % 0.7 % (0.0-4.0); HEMOGLOBIN 11.5 g/dL (11.0-16.0); LYMPH # 0.8 K/uL (1.0-4.3); MEAN CELL VOLUME 90.1 fL (81.0-99.0); MEAN CORPUSCULAR HEMOGLOBIN 30.1 pg (27.0-31.0); MEAN CORPUSCULAR HGB CONC 33.4 g/dL (33.0-37.0); MEAN PLATELET VOLUME 9.5 fL (7.2-11.7); MONO # 0.7 K/uL (0.0-0.8); MONO % 6.6 % (0.0-10.0); NEUT # 8.5 K/uL (1.8-7.0); NEUT % 84.1 % (50.0-75.0); NRBC % 0.1 % (0.0-2.0); PLATELET COUNT 236 K/uL (130-400); RBC 3.81 Mil/uL (3.80-5.20); RED CELL DISTRIBUTION WIDTH 13.6 % (11.5-14.5); WHITE BLOOD COUNT 10.1 K/uL (4.8-10.8)
[2017-12-18 23:43] LABS: SQUAMOUS EPITHIAL < 1 /hpf (0-5); URINE BACTERIA OCC (<OCC); URINE BILIRUBIN NEGATIVE (NEGATIVE); URINE BLOOD NEGATIVE (NEGATIVE); URINE CLARITY Clear (Clear); URINE COLOR Yellow (YELLOW); URINE GLUCOSE (UA) 3+ mg/dL (Normal); URINE LEUKOCYTE ESTERASE TRACE Leu/uL (Negative); URINE PROTEIN 1+ mg/dL (NEGATIVE); URINE UROBILINOGEN NORMAL mg/dL (0.2-1.0)
[2017-12-19 00:32] LABS: ALB/GLOB RATIO 1.6 (1.0-2.1); ALBUMIN 4.8 g/dL (3.5-5.0); CALCIUM 9.7 mg/dl (8.6-10.4)
[2017-12-19 00:40] LABS: LYMPHOCYTE 8 % (20-40); MONOCYTE 8 % (0-10); NEUTROPHIL 84 % (50-75); PLATELET ESTIMATE NORMAL (NORMAL); TOTAL CELLS COUNTED 100
[2017-12-19 00:53] VITALS: PULSE 88; RESP 20
[2017-12-19 01:44] VITALS: BP 150/88; TEMP 98.3; O2SAT 97
--- NOTE | 2017-12-19 08:54 | CT ---
Date of service: 12/18/2017 PROCEDURE: CT Abdomen and Pelvis without intravenous contrast HISTORY: Right flank pain COMPARISON: None. TECHNIQUE: Multiple contiguous axial images were performed through the abdomen and pelvis without the use of intravenous contrast. Subsequently, sagittal and coronal reformatted images were obtained. Radiation dose: Total exam DLP = 494.44 mGy-cm. This CT exam was performed using one or more of the following dose reduction techniques: Automated exposure control, adjustment of the mA and/or kV according to patient size, and/or use of iterative reconstruction technique. FINDINGS: LOWER THORAX: Prominent areas of scattered atelectasis seen within the visualized lungs. Heart is moderately enlarged. LIVER: Unremarkable. No gross lesion or ductal dilatation. GALLBLADDER AND BILE DUCTS: Unremarkable. PANCREAS: Prominent fatty atrophy of the pancreas. SPLEEN: Diminutive. ADRENALS: Mild nodularity of the adrenal glands. KIDNEYS AND URETERS: Diminutive bilateral kidneys which may represent some underlying atrophy. Clinical correlation. In addition, there is mild fullness of the left renal collecting system. VASCULATURE: Calcification and mural plaque noted within the aorta. BOWEL: Unremarkable. No obstruction. No gross mural thickening. Small hiatal hernia. Fecal retention in the colon APPENDIX: Unremarkable. Normal appendix. PERITONEUM: Unremarkable. No free fluid. No free air. LYMPH NODES: Unremarkable. No enlarged lymph nodes. BLADDER: Distended urinary bladder. REPRODUCTIVE: Unremarkable. BONES: Prominent degenerative changes in the spine with osteophytosis. Mild anterolisthesis L5 on S1. Mild retrolisthesis L3 on L4. OTHER FINDINGS: None. IMPRESSION: Fecal retention in the colon. Small hiatal hernia. Distended urinary bladder. Atrophic bilateral kidneys with fullness of the left renal collecting system. Prominent fatty atrophy of the pancreas. Scattered atelectasis within the lung bases. Additional findings as above. A preliminary report was performed at 12:12 a.m. on 12/19/[address] Braydon Blanchard from the [facility].
== END 2017-12-19 01:41 | disposition home or self-care (01) ==
LOC: C.ER 21:22
DX: K59.00 Constipation, unspecified (principal)
CPT/HCPCS: 74176; 80053; 81001; 83690; 85025; 87086; 96374; 99285; J2270; J7030

== ENCOUNTER 2018-01-08 09:41 | Day surgery (SDC) | payer MEDICARE, MEDICAID ==
[2018-01-08] MEDS ORDERED: Propofol 10 mg/ml Inj (20 ML) ONE (10:45)
[2018-01-08] MEDS ORDERED: Lidocaine Hydrochloride 5 ML INJ ONE (10:46)
--- NOTE | 2018-01-08 11:17 | CP.SDSHP ---
Same Day Surgery H & P - History Proposed Procedure: EGD/biopsy Pre-Op Diagnosis: gastric ulcer - Previous Medical/Surgical History Cardiac: Hypertension Endocrine/Metabolic: Diabetes Neuro: Other (Parkinsons disease) Comments: gastric ulcer Previous Surgical History: Thyroid surgery - Allergies Allergies: Allergies No Known Allergies Allergy (Verified 01/08/18 10:10) - Current Medications Current Medications: reviewed, per reconciliation - Physical Exam General Appearance: nad Vital Signs: Vital Signs 01/08/18 10:18 Temperature 98.6 F Pulse Rate 80 Respiratory 20 Rate Blood Pressure 152/74 H O2 Sat by Pulse 97 Oximetry Mental Status: Alert & Oriented x3 Heart: WNL Lungs: WNL GI: WNL - {Optional Preform as Required} Abdomen: WNL - Impression Impression: gastric ulcer surveillance Pt. Evaluated Today:Candidate for Anesthesia & Procedure: Yes - Date & Time Date: 01/08/18 Time: 10:44 Short Stay Discharge - Short Stay Discharge Admitting Diagnosis/Reason for Visit: GASTRIC ULCER, UNSP ACUTE OR CHRONIC, W/O HEMOR Disposition: HOME/ ROUTINE
[2018-01-08 11:25] VITALS: TEMP 98.5
[2018-01-08 13:30] VITALS: O2SAT 100
[2018-01-08 13:36] VITALS: BP 167/83; PULSE 78; RESP 17
== END 2018-01-08 12:30 | disposition home or self-care (01) ==
LOC: C.ENDO 09:41
PROVIDERS: ATTEND Internal Medicine Gastroenterology
DX: K29.50 Unspecified chronic gastritis without bleeding (principal); K44.9 Diaphragmatic hernia without obstruction or gangrene
CPT/HCPCS: 43239; 82948; 88305; 88342; J2704